=== PATIENT | male | born 1985 | race Caucasian/White ===

== ENCOUNTER → 2024-10-07 | Outpatient (CLI) | payer OTHER ==
--- NOTE | 2024-10-07 13:28 | XR ---
EXAMINATION TYPE: XR hand complete LT DATE OF EXAM: 10/07/2024 1:24 PM COMPARISON: None. CLINICAL INDICATION: Male, 39 years old with history of [id number] LOCALIZED SWELLING, pain TECHNIQUE: Frontal, lateral and oblique images of the left hand are obtained. FINDINGS: There is no acute fracture/dislocation evident in the left hand. The joint spaces in the l eft hand appear within normal limits. The overlying soft tissue appears unremarkable. IMPRESSION: Unremarkable study. [facility], , 10/07/2024 1:26 PM
== END | disposition home or self-care (01) ==
LOC: RADXRYALE 13:09
PROVIDERS: ATTEND Internal Medicine
DX: R22.32 Localized swelling, mass and lump, left upper limb (principal)